=== PATIENT | male | born 1970 | race Caucasian/White ===

== ENCOUNTER → 2016-10-21 | Outpatient (CLI) | payer OTHER ==
--- NOTE | ~2016-10-21 | MR42 ---
[facility] A Service of [facility] & [facility] RADIOLOGY TEXT RESULTS PATIENT: KRISTIE COWAN JR LOCATION: [facility] : 72 UNIT #: [id number] AGE: [address]: ANAT DANG MD SEX: M ORDER DR: [id number] [address] [address] [id number] O MR#: [id number] Acc #: [id number] NAME: KRISTIE COWAN : 1970 SEX: M STUDY DATE/TIME: 10/21/2016 12:56 UNIT: [facility] ROOM: STUDY DESCRIPTION: MR Elbow Wo Contrast Lt Attending Physician: Anat Dang M.D. Referring Physician: Anat Dang M.D. Ordering Physician: Anat Dang M.D. Primary Care Physician: Dominic Navarrete M.D. MRI CENTER REPORT This report is preliminary unless electronic signature is present. EXAM MRI of the left elbow HISTORY Pushing car upon trailer October 06, felt a pop in left elbow, pain upper humerus with lifting. FINDINGS Multiplanar multiecho imaging was performed of the left elbow utilizing a high field magnet and dedicated protocol. Bone structure and alignment appears normal. No focal marrow edema. Minimal elbow effusion. Moderate amount of soft tissue swelling and edema about the elbow with a sizeable fluid collection overlying the proximal ulna measuring close to 7 cm in length x 2 x 1.3 cm in greatest transverse dimensions. This may represent a olecranon bursitis though somewhat more distal than the typical olecranon fluid collection. Other considerations would include a chronic hematoma. No clinical indication to suggest this is an abscess. There is a complete retracted tear of the distal biceps tendon which is retracted more than 11 cm from the radial tuberosity. Moderate amount of edema and hemorrhage noted along the tract of the retracted biceps tendon. Brachialis and triceps tendon insertions appear intact. Common flexor and common extensor tendon origins appear normal. Medial lateral elbow ligaments appear intact. Elbow musculature unremarkable except for edema and hemorrhage along the distal aspect the biceps muscle related to biceps tendon tear. Cubital tunnel and ulnar nerve unremarkable. IMPRESSION 1. Complete and retracted tear of the distal biceps tendon from the radial tuberosity. The tendon is retracted close to 11 cm from the STS. [facility] A Service of [facility] & [facility] RADIOLOGY TEXT RESULTS PATIENT: KRISTIE COWAN JR LOCATION: [facility] : 72 UNIT #: [id number] AGE: [address]: ANAT DANG MD SEX: M ORDER DR: radial tuberosity within the distal forearm. Moderate amount of edema and hemorrhage noted along the biceps tendon tract. 2. Sizeable fluid collection overlying the posterior elbow adjacent to the olecranon but slightly more distal than the true olecranon process. I suspect this represents olecranon bursitis though could represent a chronic seroma or hematoma. This measures approximately 2 x 1.3 x 7 cm. Dictated by... Gianna Xavier M.D. THIS IS AN ELECTRONICALLY VERIFIED REPORT Gianna Xavier M.D. at 10/22/2016 5:07 PM Caden TD: 10/22/2016 10:29 JOB #: [id number] MRI CENTER REPORT Page 1 of 1
== END | disposition home or self-care (01) ==
LOC: SMRI 11:03
DX: S46.212A Strain of muscle, fascia and tendon of other parts of biceps, left arm, initial encounter (principal); R60.0 Localized edema; R58 Hemorrhage, not elsewhere classified
CPT/HCPCS: 73221